=== PATIENT | male | born 1980 | race African-American/Black ===

== ENCOUNTER 2018-07-02 00:16 | Emergency (ER) | payer SELFPAY ==
--- NOTE | 2018-07-02 00:51 | ER ---
Nurse's Notes [facility] Name: Lawrence Portillo Age: 38 yrs Sex: Male : 1980 Arrival Date: 07/02/2018 Time: 00:17 Bed 14 Private MD: Diagnosis: Dental caries, unspecified;Essential (primary) hypertension Presentation: 07/02 00:46 Presenting complaint: Patient states: I have a tooth ache that started 3 days ago. jb4 Transition of care: patient was not received from another setting of care. Onset of symptoms was June 28, 2018. Risk Assessment: Do you want to hurt yourself or someone else? Patient reports no desire to harm self or others. Initial Sepsis Screen: Does the patient meet any 2 criteria? HR > 90 bpm. Yes Does the patient have a suspected source of infection? No. Patient's initial sepsis screen is negative. Care prior to arrival: None. 00:46 Method Of Arrival: Ambulatory jb4 00:46 Acuity: ARIANNA 4 jb4 Triage Assessment: 00:47 General: Appears in no apparent distress. comfortable, Behavior is calm, cooperative, jb4 appropriate for age. Pain: Complains of pain in tooth ache. EENT: Reports pain in tooth ache. Neuro: Level of Consciousness is awake, alert, obeys commands, Oriented to person, place, time, situation. Cardiovascular: Patient's skin is warm and dry. Respiratory: Airway is patent Respiratory effort is even, unlabored, Respiratory pattern is regular, symmetrical. GI: No signs and/or symptoms were reported involving the gastrointestinal system. : Derm: Skin is intact, Skin is dry, Skin is normal, Skin temperature is warm. Musculoskeletal: Circulation, motion, and sensation intact. Historical: - Allergies: 00:47 No Known Allergies; jb4 - Home Meds: 00:47 None [Active]; jb4 - PMHx: 00:47 Hypertension; jb4 - PSHx: 00:47 None; jb4 - Immunization history:: Adult Immunizations not up to date, Flu vaccine is not up to date. - Social history:: Smoking status: Patient uses tobacco products, denies chronic smoking, but will smoke occasionally, Patient uses alcohol, occasionally. - Ebola Screening: : No symptoms or risks identified at this time. Screenin:47 Abuse screen: Denies threats or abuse. jb4 00:47 Nutritional screening: No deficits noted. Tuberculosis screening: No symptoms or risk jb4 factors identified. Fall Risk None identified. Assessment: 00:47 General: see triage assessment. Provider notified of high B/P, see [facility] for orders.. jb4 01:00 Reassessment: monitoring b/p before discharge. jb4 01:47 Reassessment: Patient appears in no apparent distress at this time. Patient and/or jb4 family updated on plan of care and expected duration. Pain level reassessed. Patient is alert, oriented x 3, equal unlabored respirations, skin warm/dry/pink. monitoring b/p before discharge. 01:50 Reassessment: Patient appears in no apparent distress at this time. Patient is alert, jb4 oriented x 3, equal unlabored respirations, skin warm/dry/pink. discussed D/c, F/u with pt and family, denies question and concerns. instructed to find a primary provider to help manage B/P. Vital Signs: 00:47 BP 170 / 120; Pulse 102; Resp 18; Temp 98.9; Pulse Ox 100% on R/A; Weight 86.18 kg; jb4 Height 5 ft. 10 in. (177.80 cm); Pain 2/10; 01:16 BP 171 / 122; Pulse 91; Resp 18; Pulse Ox 100% ; Pain 2/10; jb4 01:30 BP 168 / 130; Pulse 87; Resp 16; Pulse Ox 100% ; jb4 01:39 BP 176 / 127; Pulse 84; Resp 16; Pulse Ox 100% on R/A; jb4 00:47 Body Mass Index 27.26 (86.18 kg, 177.80 cm) jb4 ED Course: 00:17 Patient arrived in ED. ds1 00:22 Yadira Paredes FNP-C is PHCP. snw 00:22 Enrique Andersen MD is Attending Physician. snw 00:25 Kwabena Egan, NALLELY is Primary Nurse. jb4 00:47 Triage completed. jb4 00:47 Patient has correct armband on for positive identification. Bed in low position. Call jb4 light in reach. Side rails up X 1. Pulse ox on. NIBP on. 00:50 Arm band placed on left wrist. jb4 01:50 No provider procedures requiring assistance completed. Patient did not have IV access jb4 during this emergency room visit. Administered Medications: 01:00 Drug: Norvasc 5 mg Route: PO; jb4 01:42 Follow up: Response: No adverse reaction; Blood pressure is unchanged jb4 01:00 Drug: Crane 5 mg-325 mg 1 tabs Route: PO; jb4 01:42 Follow up: Response: No adverse reaction; Pain is decreased jb4 01:00 Drug: Augmentin 875 mg Route: PO; jb4 01:40 Follow up: Response: No adverse reaction jb4 01:50 Drug: Norvasc 5 mg Route: PO; jb4 02:00 Follow up: Response: No adverse reaction jb4 Outcome: 00:50 Discharge ordered by . snmaya 01:50 Discharged to home ambulatory. jb4 01:50 Condition: stable 01:50 Discharge instructions given to patient, Instructed on discharge instructions, follow up and referral plans. medication usage, Demonstrated understanding of instructions, follow-up care, medications, Prescriptions given X 4. 02:14 Patient left the ED. jb4 Signatures: Yadira Paredes, FIRE CHIEF'S AIDE-C FIRE CHIEF'S AIDE-Karla Ferguson ds1 Kwabena Egan, RN RN jb4 Corrections: (The following items were deleted from the chart) 02:13 01:47 Reassessment: Patient appears in no apparent distress at this time. Patient jb4 and/or family updated on plan of care and expected duration. Pain level reassessed. Patient is alert, oriented x 3, equal unlabored respirations, skin warm/dry/pink. jb4
--- NOTE | 2018-07-02 00:51 | EDPHYS ---
Physician Documentation [facility] Name: Lawrence Portillo Age: 38 yrs Sex: Male : 1980 Arrival Date: 07/02/2018 Time: 00:17 Bed 14 Private MD: ED Physician Enrique Andersen HPI: 07/02 00:54 This 38 yrs old Black Male presents to ER via Ambulatory with complaints of Toothache. snw 00:54 The patient presents with broken tooth/teeth. The problem is located in the upper right snw first molar (#3). Onset: The symptoms/episode began/occurred gradually. Duration: The symptoms are intermittent. Modifying factors: The symptoms are alleviated by nothing, the symptoms are aggravated by air, chewing. Severity of symptoms: At their worst the symptoms were moderate. The patient has not experienced similar symptoms in the past. It is unknown whether or not the patient has recently seen a physician. Historical: - Allergies: 00:47 No Known Allergies; jb4 - Home Meds: 00:47 None [Active]; jb4 - PMHx: 00:47 Hypertension; jb4 - PSHx: 00:47 None; jb4 - Immunization history:: Adult Immunizations not up to date, Flu vaccine is not up to date. - Social history:: Smoking status: Patient uses tobacco products, denies chronic smoking, but will smoke occasionally, Patient uses alcohol, occasionally. - Ebola Screening: : No symptoms or risks identified at this time. ROS: 00:52 Constitutional: Negative for fever, chills, and weight loss, Eyes: Negative for injury, snw pain, redness, and discharge, Neck: Negative for injury, pain, and swelling, Cardiovascular: Negative for chest pain, palpitations, and edema, Respiratory: Negative for shortness of breath, cough, wheezing, and pleuritic chest pain, Abdomen/GI: Negative for abdominal pain, nausea, vomiting, diarrhea, and constipation, Back: Negative for injury and pain, : Negative for injury, bleeding, discharge, and swelling, MS/Extremity: Negative for injury and deformity, Skin: Negative for injury, rash, and discoloration, Neuro: Negative for headache, weakness, numbness, tingling, and seizure. 00:52 ENT: Positive for dental pain. Exam: 00:52 Constitutional: This is a well developed, well nourished patient who is awake, alert, snw and in no acute distress. Head/Face: Normocephalic, atraumatic. Eyes: Pupils equal round and reactive to light, extra-ocular motions intact. Lids and lashes normal. Conjunctiva and sclera are non-icteric and not injected. Cornea within normal limits. Periorbital areas with no swelling, redness, or edema. Neck: Trachea midline, no thyromegaly or masses palpated, and no cervical lymphadenopathy. Supple, full range of motion without nuchal rigidity, or vertebral point tenderness. No Meningismus. Chest/axilla: Normal chest wall appearance and motion. Nontender with no deformity. No lesions are appreciated. Cardiovascular: Regular rate and rhythm with a normal S1 and S2. No gallops, murmurs, or rubs. Normal PMI, no JVD. No pulse deficits. Respiratory: Lungs have equal breath sounds bilaterally, clear to auscultation and percussion. No rales, rhonchi or wheezes noted. No increased work of breathing, no retractions or nasal flaring. Abdomen/GI: Soft, non-tender, with normal bowel sounds. No distension or tympany. No guarding or rebound. No evidence of tenderness throughout. Back: No spinal tenderness. No costovertebral tenderness. Full range of motion. Skin: Warm, dry with normal turgor. Normal color with no rashes, no lesions, and no evidence of cellulitis. MS/ Extremity: Pulses equal, no cyanosis. Neurovascular intact. Full, normal range of motion. Neuro: Awake and alert, GCS 15, oriented to person, place, time, and situation. Cranial nerves II-XII grossly intact. Motor strength 5/5 in all extremities. Sensory grossly intact. Cerebellar exam normal. Normal gait. 00:52 ENT: External ear(s): are unremarkable, Ear canal(s): are normal, TM's: are normal, Nose: is normal, Mouth: is normal, Posterior pharynx: is normal, Dental exam: dental caries, fractured teeth are noted, specifically the upper right first molar (#3), Voice: is normal. Vital Signs: 00:47 BP 170 / 120; Pulse 102; Resp 18; Temp 98.9; Pulse Ox 100% on R/A; Weight 86.18 kg; jb4 Height 5 ft. 10 in. (177.80 cm); Pain 2/10; 01:16 BP 171 / 122; Pulse 91; Resp 18; Pulse Ox 100% ; Pain 2/10; jb4 01:30 BP 168 / 130; Pulse 87; Resp 16; Pulse Ox 100% ; jb4 01:39 BP 176 / 127; Pulse 84; Resp 16; Pulse Ox 100% on R/A; jb4 00:47 Body Mass Index 27.26 (86.18 kg, 177.80 cm) jb4 MDM: 00:25 Patient medically screened. snw 00:53 Data reviewed: vital signs, nurses notes. Data interpreted: Pulse oximetry: on room air snw is 100 %. Interpretation: normal. Counseling: I had a detailed discussion with the patient and/or guardian regarding: the historical points, exam findings, and any diagnostic results supporting the discharge/admit diagnosis, the presence of at least one elevated blood pressure reading (>120/80) during this emergency department visit, the need for outpatient follow up, to return to the emergency department if symptoms worsen or persist or if there are any questions or concerns that arise at home. Special discussion: I have referred the patient to see his PCP for further evaluation of high blood pressure. Based on the history and exam findings, there is no indication for further emergent testing or inpatient evaluation. I discussed with the patient/guardian the need to see a dentist for further evaluation of the symptoms. I discussed with the patient/guardian the need to see the primary care provider for further evaluation of the symptoms. Administered Medications: 01:00 Drug: Norvasc 5 mg Route: PO; jb4 01:42 Follow up: Response: No adverse reaction; Blood pressure is unchanged jb4 01:00 Drug: [facility] 5 mg-325 mg 1 tabs Route: PO; jb4 01:42 Follow up: Response: No adverse reaction; Pain is decreased jb4 01:00 Drug: Augmentin 875 mg Route: PO; jb4 01:40 Follow up: Response: No adverse reaction jb4 01:50 Drug: Norvasc 5 mg Route: PO; jb4 02:00 Follow up: Response: No adverse reaction 4 Disposition: 03:22 Co-signature as Attending Physician, Enrique Andersen MD I agree with the assessment and 4 plan of care. Attestation: The patient's history, exam findings, diagnostics, and a summary of any interventions or procedures was reviewed in detail with Yadira MEZA. Disposition: 07/02/18 00:50 Discharged to Home. Impression: Dental caries, unspecified, Essential (primary) hypertension. - Condition is Stable. - Discharge Instructions: Dental Caries, Adult, Dental Pain, Hypertension, How to Take Your Blood Pressure, [id number]-[id number], Diet and Dental Disease, DASH Eating Plan, Managing Your Hypertension. - Prescriptions for chlorhexidine gluconate 0.12 % Mucous Membrane mouthwash - place 15 milliliter by MUCOUS MEMBRANE route 2 times per day after brushing teeth, swish in mouth for 30 seconds then spit out; 480 milliliter. Augmentin 500- 125 mg Oral Tablet - take 1 tablet by ORAL route every 8 hours for 10 days; 30 tablet. Norvasc 5 mg Oral Tablet - take 1 tablet by ORAL route once daily; 20 tablet. Diclofenac Sodium 75 mg Oral Tablet Sustained Release - take 1 tablet by ORAL route 2 times per day; 30 tablet. - Work release form, Medication Reconciliation Form, Thank You Letter, Antibiotic Education, Prescription Opioid Use form. - Follow up: Private Physician; When: 2 - 3 days; Reason: Recheck today's complaints, Continuance of care, Re-evaluation by your physician. Follow up: Emergency Department; When: As needed; Reason: Worsening of condition. Signatures: Yadira Paredes FNP-C FNP-Csnw Kwabena Egan, NALLELY RN jb4 Enrique Andersen MD MD tw4 Corrections: (The following items were deleted from the chart) 02:14 00:50 07/02/2018 00:50 Discharged to Home. Impression: Dental caries, unspecified; jb4 Essential (primary) hypertension. Condition is Stable. Forms are Medication Reconciliation Form, Thank You Letter, Antibiotic Education, Prescription Opioid Use. Follow up: Private Physician; When: 2 - 3 days; Reason: Recheck today's complaints, Continuance of care, Re-evaluation by your physician. Follow up: Emergency Department; When: As needed; Reason: Worsening of condition. snw
[2018-07-02] MEDS ORDERED: AMLODIPINE 5 MG TAB ONE ×2 (01:05→01:54)
[2018-07-02] MEDS ORDERED: HYDROCODONE/APAP 5/325 MG TAB ONE (01:05)
[2018-07-02] MEDS ORDERED: AMOX/K CLAV 875 MG TAB ONE (01:06)
== END 2018-07-02 02:14 | disposition home or self-care (01) ==
LOC: ER 00:16
DX: K02.9 Dental caries, unspecified (principal); I10 Essential (primary) hypertension
CPT/HCPCS: 99283

== ENCOUNTER 2023-02-22 15:21 | Emergency (ER) | payer SELFPAY ==
[2023-02-22 15:54] LABS: Absolute Lymphocytes (CBC) 2.4 K/uL (0.7-4.9); Hematocrit 39.7 % (39.6-49.0); Lymphocytes % 30.2 % (15.3-44.8); MCV 85.1 fL (80-100); MPV 8.6 fL (7.6-11.3); RBC Red Blood Cell Count 4.67 M/uL (4.33-5.43)
[2023-02-22] MEDS ORDERED: KETOROLAC 30 MG/ML INJ ONE (15:56)
[2023-02-22 16:07] LABS: Potassium 3.4 mEq/L (3.5-5.1); Uric Acid 10.2 mg/dL (3.5-7.2)
--- NOTE | 2023-02-22 17:07 | RAD REPORT ---
EXAM DESCRIPTION: RAD - Knee Right 3 View - 02/22/2023 4:07 pm CLINICAL HISTORY: knee pain, no tauma COMPARISON: No comparisons TECHNIQUE: Right knee, 3 views. FINDINGS: No fracture, dislocation or periosteal reaction.No joint effusion seen. No joint space alma rosa rowing. Enthesopathy at the quadriceps tendon attachment. Mild degenerative changes along the margins of the patella. Clinical concerns for internal derangement or occult bony injury could be further assessed with MR im aging. IMPRESSION: No acute osseus abnormality.
--- NOTE | 2023-02-22 17:27 | EDPHYS ---
Physician Documentation [facility] Name: Lawrence Portillo Age: 42 yrs Sex: Male : 1980 Arrival Date: 02/22/2023 Time: 15:21 Bed Treatment Private MD: Glenn Roman HPI: 02/22 15:34 This 42 yrs old Black Male presents to ER via Ambulatory with complaints of Knee Pain - jmm swelling. 15:34 The patient presents with pain. Onset: The symptoms/episode began/occurred gradually, 2 jmm day(s) ago. Modifying factors: The symptoms are alleviated by nothing. the symptoms are aggravated by movement, weight bearing, bending knee. This is a 42-year-old male with history of hypertension that presents emerged part with complaints of right knee pain beginning this past . Denies any known injury. Denies history of gout but states his brother does have the condition. Patient does admit to recent alcohol use. Denies any recent shellfish. Patient denies fever chills. Historical: - Allergies: 15:36 No Known Allergies; nj1 - PMHx: 15:36 Hypertension; nj1 - PSHx: 15:36 None; nj1 - Immunization history:: Client reports having NOT received the Covid vaccine. - Social history:: Smoking status: Reported history of juuling and/or vaping. ROS: 15:34 Constitutional: Negative for fever, chills, and weight loss, Cardiovascular: Negative jmm for chest pain, palpitations, and edema, Respiratory: Negative for shortness of breath, cough, wheezing, and pleuritic chest pain. 15:34 MS/extremity: Positive for pain. 15:34 All other systems are negative. Exam: 15:34 Constitutional: This is a well developed, well nourished patient who is awake, alert, jmm and in no acute distress. Head/Face: atraumatic. Eyes: EOMI, no conjunctival erythema appreciated ENT: Moist Mucus Membranes Neck: Trachea midline, Supple Chest/axilla: Normal chest wall appearance and motion. Cardiovascular: Regular rate and rhythm. No edema appreciated Respiratory: Normal respirations, no respiratory distress appreciated Abdomen/GI: Non distended Back: Normal ROM Skin: General appearance color normal 15:34 Musculoskeletal/extremity: Painful range of motion of the right knee, compartments are soft, full dorsalis pedis pulse, neurovascular intact. 15:34 Skin: Appearance: Color: normal in color. 15:34 Neuro: Orientation: is normal, Mentation: is normal, Memory: is normal. 15:34 Psych: Behavior/mood is pleasant, cooperative. Vital Signs: 15:34 BP 141 / 96; Pulse 95; Resp 18; Temp 98.8; Pulse Ox 100% ; Weight 92.99 kg; Height 5 nj1 ft. 10 in. ; Pain 10/10; 15:34 Body Mass Index 29.41 (92.99 kg, 177.8 cm) [facility] 15:34 Pain Scale: Adult nj1 MDM: 15:34 Patient medically screened. [facility] 17:55 Data reviewed: vital signs, nurses notes. I considered the following discharge [facility] prescriptions or medication management in the emergency department Medications were administered in the Emergency Department. See MAR. Independent interpretation of the following test(s) in the Emergency Department X-Ray: My interpretation is No fracture appreciated. 17:55 Counseling: I had a detailed discussion with the patient and/or guardian regarding: the [facility] historical points, exam findings, and any diagnostic results supporting the discharge/admit diagnosis, radiology results, the need for outpatient follow up, to return to the emergency department if symptoms worsen or persist or if there are any questions or concerns that arise at home. ED course: Uric acid elevated. I suspect the patient most likely has gout. I do not currently suspect septic joint, there is no trauma to the area, patient is afebrile and nontoxic in appearance. Patient advised to follow with orthopedics for further evaluation otherwise given strict return precautions. Patient understood agrees plan of care. 02/22 15:37 Order name: CBC with Diff; Complete Time: 16:12 [facility] 02/22 15:37 Order name: Uric Acid; Complete Time: 16:12 [facility] 02/22 15:37 Order name: BMP; Complete Time: 16:12 [facility] 02/22 15:37 Order name: Knee Right 3 View XRAY; Complete Time: 17:10 [facility] 02/22 15:37 Order name: Saline Lock; Complete Time: 15:48 [facility] Administered Medications: 15:59 Drug: Ketorolac IVP 30 mg Route: IVP; Site: right antecubital; hb 17:02 Follow up: Response: No adverse reaction hb 17:40 Drug: Decadron - Dexamethasone IVP 10 mg Route: IVP; Site: right antecubital; hb 17:53 Follow up: Response: Medication administered at discharge. hb Disposition Summary: 02/22/23 17:26 Discharge Ordered Location: Home [facility] Condition: Stable jmm Diagnosis - Gout, unspecified jmm Followup: [facility] - With: Gil Pace MD - When: 2 - 3 days - Reason: Recheck today's complaints, Continuance of care, Re-evaluation by your physician Discharge Instructions: - Gout jm - Low-Purine Eating Plan [facility] - Discharge Summary Sheet hb Forms: - Medication Reconciliation Form [facility] - Thank You Letter [facility] - Antibiotic Education [facility] - Prescription Opioid Use [facility] - Work release form Prescriptions: - Diclofenac Sodium 75 mg Oral Tablet Sustained Release - take 1 tablet by ORAL route 2 times per day; 30 tablet; Refills: 0, Product jm Selection Permitted Signatures: Dispatcher [employer] Talha Wilkes PA PA m Sabrina Hylton, RN RN Kelsey Luna RN RN nj1
--- NOTE | 2023-02-22 17:27 | ER ---
Nurse's Notes [facility] Name: Lawrence Portillo Age: 42 yrs Sex: Male : 1980 Arrival Date: 02/22/2023 Time: 15:21 Bed Treatment Private MD: Diagnosis: Gout, unspecified Presentation: 02/22 15:34 Chief complaint: Patient states: Woke up with right knee pain. Getting worse. nj1 Coronavirus screen: Vaccine status: Patient reports being unvaccinated. Ebola Screen: Patient denies travel to an Ebola-affected area in the 21 days before illness onset. Initial Sepsis Screen: Does the patient meet any 2 criteria? HR > 90 bpm. No. Patient's initial sepsis screen is negative. Does the patient have a suspected source of infection? No. Patient's initial sepsis screen is negative. Risk Assessment: Do you want to hurt yourself or someone else? Patient reports no desire to harm self or others. Onset of symptoms was February 20, 2023. 15:34 Method Of Arrival: Ambulatory [facility] 15:34 Acuity: ARIANNA 3 nj1 Historical: - Allergies: 15:36 No Known Allergies; nj1 - PMHx: 15:36 Hypertension; nj1 - PSHx: 15:36 None; nj1 - Immunization history:: Client reports having NOT received the Covid vaccine. - Social history:: Smoking status: Reported history of juuling and/or vaping. Screenin:30 [facility] ED Fall Risk Assessment (Adult) Score/Fall Risk Level 0 - 2 = Low Risk hb Oriented to surroundings, Maintained a safe environment. Abuse screen: Denies threats or abuse. Denies injuries from another. Nutritional screening: No deficits noted. Tuberculosis screening: No symptoms or risk factors identified. Assessment: 16:30 General: Appears in no apparent distress. uncomfortable, Behavior is calm, cooperative. hb Pain: Pain currently is 10 out of 10 on a pain scale. Neuro: Level of Consciousness is awake, alert, obeys commands, Oriented to person, place, time, situation. Cardiovascular: Patient's skin is warm and dry. Respiratory: Respiratory effort is even, unlabored, Respiratory pattern is regular, symmetrical. GI: No signs and/or symptoms were reported involving the gastrointestinal system. : No signs and/or symptoms were reported regarding the genitourinary system. EENT: No signs and/or symptoms were reported regarding the EENT system. Derm: Skin is pink, warm \T\ dry. Musculoskeletal: Reports KNEE PAIN. Vital Signs: 15:34 BP 141 / 96; Pulse 95; Resp 18; Temp 98.8; Pulse Ox 100% ; Weight 92.99 kg; Height 5 nj1 ft. 10 in. ; Pain 10/10; 15:34 Body Mass Index 29.41 (92.99 kg, 177.8 cm) la1 15:34 Pain Scale: Adult [facility] ED Course: 15:22 Patient arrived in ED. am2 15:29 Talha Green PA is PHCP. m 15:29 Glenn Siddiqi MD is Attending Physician. m 15:36 Triage completed. nj1 15:37 Arm band placed on left wrist. nj1 15:48 BMP Sent. bc6 15:48 Uric Acid Sent. bc6 15:48 CBC with Diff Sent. bc6 15:48 Inserted saline lock: 20 gauge in right antecubital area, using aseptic technique. bc6 16:08 Knee Right 3 View XRAY In Process Unspecified. EDMS 16:30 Patient has correct armband on for positive identification. hb 16:30 No provider procedures requiring assistance completed. hb 16:40 Sabrina Hylton, RN is Primary Nurse. hb 17:26 Gil Pace MD is Referral Physician. jmm 17:53 IV discontinued, intact, bleeding controlled, No redness/swelling at site. hb Administered Medications: 15:59 Drug: Ketorolac IVP 30 mg Route: IVP; Site: right antecubital; hb 17:02 Follow up: Response: No adverse reaction hb 17:40 Drug: Decadron - Dexamethasone IVP 10 mg Route: IVP; Site: right antecubital; hb 17:53 Follow up: Response: Medication administered at discharge. hb Medication: 16:30 VIS not applicable for this client. hb Outcome: 17:26 Discharge ordered by . jmm 17:49 Discharged to home ambulatory, with family. hb 17:49 Condition: improved 17:49 Discharge instructions given to patient, Instructed on discharge instructions, follow up and referral plans. Demonstrated understanding of instructions, follow-up care, medications, Prescriptions given X 1. 17:53 Patient left the ED. hb Signatures: Dispatcher [employer] EDMS Mickail, Talha, PA PA jmm Hylton, Sabrina, RN RN hb Jenna Liu am2 Venita Harrington 6 Kelsey Luna RN RN nj1
[2023-02-22] MEDS ORDERED: dexAMETHasone 10 MG/ML VIAL ONE (17:48)
[2023-02-22 18:12] VITALS: BP 141/96; TEMP 98.8; O2SAT 100
== END 2023-02-22 17:53 | disposition home or self-care (01) ==
LOC: ER 15:21
DX: M10.9 Gout, unspecified (principal)
CPT/HCPCS: 36415; 80048; 84550; 85025; 96374; 96375; 99284; J1100

== ENCOUNTER 2023-03-05 22:38 | Emergency (ER) | payer SELFPAY ==
--- NOTE | 2023-03-05 23:21 | EDPHYS ---
Physician Documentation [facility] Name: Lawrence Portillo Age: 42 yrs Sex: Male : 1980 Arrival Date: 03/05/2023 Time: 22:38 Bed IW2 Private MD: ED Physician Thomas Perez HPI: 03/05 23:15 This 42 yrs old Black Male presents to ER via Unassigned with complaints of Insect Bite.cp 23:15 The patient presents with an abscess of the lateral aspect of right knee, the patient cp presents with a swollen area of the lateral aspect of right knee. 23:15 Description: draining. Onset: The symptoms/episode began/occurred 2 day(s) ago. cp 23:15 Possible cause(s): spider bite. cp 23:15 Associated signs and symptoms: The patient has no apparent associated signs or symptoms.cp Historical: - PMHx: 23:39 Hypertension; kd3 - Immunization history:: Adult Immunizations up to date. - Social history:: Smoking status: unknown. ROS: 23:18 MS/extremity: Positive for swelling, tenderness, of the lateral aspect of right knee. cp 23:18 Constitutional: Negative for body aches, chills, fever, poor PO intake. cp 23:18 Respiratory: Negative for cough, shortness of breath, wheezing. 23:18 Abdomen/GI: Negative for abdominal pain. 23:18 All other systems are negative. Exam: 23:20 Constitutional: The patient appears in no acute distress, alert, awake, non-toxic, well cp developed, well nourished, uncomfortable. 23:20 Skin: abscess, that is small, of the lateral aspect of right knee, with surround mild cp swelling and tenderness to palpation. Vital Signs: 23:37 Pulse 98; Resp 18; Temp 98.1; Pulse Ox 100% ; Weight 92.99 kg; kd3 23:38 BP 144 / 85; kd3 MDM: 23:21 Patient medically screened. cp 23:21 Data reviewed: vital signs, nurses notes. cp 23:21 ED course: Patient declined I\T\D at this time. Will prescribe oral antibiotic and cp discharge to home for continued monitoring. Administered Medications: No medications were administered Disposition Summary: 03/05/23 23:21 Discharge Ordered Location: Home cp Problem: new cp Symptoms: are unchanged cp Condition: Stable cp Diagnosis - Cutaneous abscess of right lower limb cp Followup: cp - With: Private Physician - When: 1 - 2 days - Reason: Worsening of condition Discharge Instructions: - Discharge Summary Sheet cp - Skin Abscess cp Forms: - Medication Reconciliation Form cp - Thank You Letter cp - Antibiotic Education cp - Prescription Opioid Use cp Prescriptions: - Ibuprofen 800 mg Oral Tablet - take 1 tablet by ORAL route every 8 hours As needed take with food; 30 tablet; cp Refills: 0, Product Selection Permitted - Doxycycline Hyclate 100 mg Oral Tablet - take 1 tablet by ORAL route every 12 hours; 20 tablet; Refills: 0, Product cp Selection Permitted Signatures: Glenn Fernandez PA PA cp Doucette, Kyli RN RN kd3
--- NOTE | 2023-03-05 23:41 | ER ---
Nurse's Notes [facility] Name: Lawrence Portillo Age: 42 yrs Sex: Male : 1980 Arrival Date: 03/05/2023 Time: 22:38 Bed IW2 Private MD: Diagnosis: Cutaneous abscess of right lower limb Presentation: 03/05 23:38 Chief complaint: Patient states: I don't know what i got bit by. I got bit by some bug kd3 on my right knee about 2 or 3 days ago and now it is just swelling and painfful. Coronavirus screen: Vaccine status:. Ebola Screen: No symptoms or risks identified at this time. Initial Sepsis Screen: Does the patient meet any 2 criteria? No. Patient's initial sepsis screen is negative. Does the patient have a suspected source of infection? No. Patient's initial sepsis screen is negative. Risk Assessment: Do you want to hurt yourself or someone else? Patient reports no desire to harm self or others. Onset of symptoms was March 05, 2023. 23:38 Method Of Arrival: Ambulatory kd3 23:38 Acuity: ARIANNA 4 kd3 Triage Assessment: 23:39 Bite description: bite sustained to lateral aspect of right knee by an unknown animal, kd3 animal information: vaccination(s) is unknown. General: Appears in no apparent distress. Behavior is calm, cooperative. Pain: Complains of pain in lateral aspect of right knee. Historical: - PMHx: 23:39 Hypertension; kd3 - Immunization history:: Adult Immunizations up to date. - Social history:: Smoking status: unknown. Assessment: 23:40 Derm: Skin is intact, Skin is normal. kd3 Vital Signs: 23:37 Pulse 98; Resp 18; Temp 98.1; Pulse Ox 100% ; Weight 92.99 kg; kd3 23:38 BP 144 / 85; kd3 ED Course: 22:41 Patient arrived in ED. ja2 22:46 Glenn Fernandez PA is PHCP. cp 22:46 Thmoas Perez MD is Attending Physician. cp 23:39 Triage completed. kd3 23:39 Arm band placed on right wrist. kd3 Administered Medications: No medications were administered Outcome: 23:21 Discharge ordered by . cp 23:40 Patient left the ED. kd3 Signatures: Glenn Fernandez PA PA cp Alexander, Jessica ja2 Doucette, Kyli, RN RN kd3
[2023-03-05] MEDS ORDERED: DOXYCYCLINE 100 MG CAP PO ONE (23:42)
[2023-03-05 23:45] VITALS: TEMP 98.1; O2SAT 100
[2023-03-05 23:46] VITALS: BP 144/85
== END 2023-03-05 23:40 | disposition home or self-care (01) ==
LOC: ER 22:38
DX: L02.415 Cutaneous abscess of right lower limb (principal); M25.561 Pain in right knee; S80.261A Insect bite (nonvenomous), right knee, initial encounter
CPT/HCPCS: 99281